=== PATIENT | female | born 1975 | race Caucasian/White ===

== ENCOUNTER 2018-06-06 09:37 | Emergency (ER) | payer MEDICAID, OTHER ==
[~2018-06-06] VITALS: Ht 160 cm; Wt 68.2 kg
[~2018-06-06 09:37] MED LIST: HYDR-3686 PO; SERT50TA PO
[2018-06-06 10:44] LABS: BASOPHILS # (AUTO) 0.1 X10'3 (0-0.2); BASOPHILS % (AUTO) 1.3 % (0-1); EOSINOPHILS # (AUTO) 0.3 X10'3 (0-0.9); EOSINOPHILS % (AUTO) 4.3 % (0-6); HEMATOCRIT 41.3 % (35.0-45.0); HEMOGLOBIN 13.8 g/dl (12.0-16.0); MEAN CORPUSCULAR HGB CONC 33.4 g/dL (33.0-36.5); MEAN CORPUSCULAR VOLUME 89.8 FL (78-98); MEAN PLATELET VOLUME 8.2 FL (7.4-10.4); MONOCYTES # (AUTO) 0.4 X10'3 (0-0.9); MONOCYTES % (AUTO) 5.4 % (2-12); NEUTROPHILS # (AUTO) 4.6 X10'3 (1.8-7.7); PLATELET COUNT 215 X10'3 (140-440); RED CELL DISTRIBUTION WIDTH 13.1 % (11.5-14.5); WHITE BLOOD COUNT 7.5 X10'3 (4.5-11.0)
[2018-06-06 10:59] LABS: ALANINE AMINOTRANSFERASE 19 U/L (12-78); ALBUMIN 3.8 G/DL (3.4-5.0); ALBUMIN/GLOBULIN RATIO 1.3 (1.1-1.5); ANION GAP 8 (8-16); ASPARTATE AMINO TRANSFERASE 14 U/L (10-37); BILIRUBIN,TOTAL 0.2 MG/DL (0.1-1.0); BLOOD UREA NITROGEN 10 MG/DL (7-18); BUN/CREATININE RATIO 13.5 (6.6-38.0); CALCIUM 9.1 MG/DL (8.5-10.1); CHLORIDE 104 MMOL/L (99-107); CREATININE 0.74 MG/DL (0.40-0.90); GLUCOSE 93 MG/DL (70-104); POTASSIUM 3.6 MMOL/L (3.5-5.1); SODIUM 139 MMOL/L (135-145); TOTAL CARBON DIOXIDE 27.5 MMOL/L (24-32); TOTAL PROTEIN 6.7 G/DL (6.4-8.2); eGFR 86 ML/MIN
[2018-06-06 11:00] LABS: ALKALINE PHOSPHATASE 82 IU/L (46-116)
[2018-06-06 11:06] LABS: ETHANOL < 0.010 GM/DL (0.0-0.010)
[2018-06-06] MEDS ORDERED: OLANZapine 5mg rapidly disint. tablet PO ONE (12:15)
[2018-06-06] MEDS ORDERED: LORazepam 1 MG tablet PO ONE (12:15)
--- NOTE | 2018-06-06 12:20 | NUR ---
pt refusing po meds at this time. pt is calm and is trying to sleep
[2018-06-06 15:40] LABS: URINE HCG NEGATIVE (NEG)
[2018-06-06 15:41] LABS: CLARITY,URINE SLIGHTLY CLOUDY (Clear); COLOR,URINE STRAW (Yellow); GLUCOSE, URINE NEGATIVE (Neg); KETONES,URINE NEGATIVE (Neg); LEUKOCYTE ESTERASE ,URINE SMALL (Neg); NITRITES, URINE NEGATIVE (Neg); OCCULT BLOOD,URINE NEGATIVE (Neg); PH,URINE 6.5 (4.8-8.0); PROTEIN,URINE NEGATIVE (Neg); UA COLLECTION TYPE CLN CATCH MIDSTREAM; UROBILINOGEN,URINE 0.2 E.U/dL (0.2-1.0)
[2018-06-06 15:54] LABS: URINE AMPHETAMINE SCREEN POSITIVE (Neg); URINE BARBITUATE SCREEN NEGATIVE (Neg); URINE BENZODIAZEPINES SCREEN NEGATIVE (Neg); URINE CANNABINOID SCREEN NEGATIVE (Neg); URINE COCAINE SCREEN NEGATIVE (Neg); URINE METHADONE SCREEN NEGATIVE (Neg); URINE OPIATE SCREEN NEGATIVE (Neg); URINE PHENCYCLIDINE SCREEN NEGATIVE (Neg)
[2018-06-06 15:59] LABS: BACTERIA,URINE 1+ /HPF (Neg); MUCUS STRANDS FEW /LPF (Neg); RBC,URINE 0-2 /HPF (0-2); SQUAMOUS EPITHELIAL CELL,UR MODERATE /LPF (FEW)
--- NOTE | 2018-06-06 18:14 | NUR ---
Received report from ROEL Anaya. Patient is awake and alert on room air, in no apparent distress.
[2018-06-06] MEDS ORDERED: olanzapine 10mg tablet PO SCH (21:00)
[2018-06-07 07:57] VITALS: BP 97/59
[2018-06-07] MEDS ORDERED: OLANZAPINE 5 MG TABLET PO SCH (08:00)
[2018-06-07 12:14] LABS: COLOR,URINE YELLOW (Yellow); GLUCOSE, URINE NEGATIVE (Neg); KETONES,URINE NEGATIVE (Neg); LEUKOCYTE ESTERASE ,URINE SMALL (Neg); NITRITES, URINE NEGATIVE (Neg); PROTEIN,URINE TRACE mg/dl (Neg); UROBILINOGEN,URINE 0.2 E.U/dL (0.2-1.0)
[2018-06-07 12:26] LABS: CLARITY,URINE CLEAR (Clear); OCCULT BLOOD,URINE NEGATIVE (Neg)
[2018-06-07 12:27] LABS: UA COLLECTION TYPE CLN CATCH MIDSTREAM
[2018-06-07 12:28] LABS: RBC,URINE 0-2 /HPF (0-2)
[2018-06-07 12:29] LABS: BACTERIA,URINE NONE SEEN /HPF (Neg); CAL OXALATE CRYSTALS 1+ /HPF (NEGATIVE); SQUAMOUS EPITHELIAL CELL,UR FEW /LPF (FEW)
--- NOTE | 2018-06-07 12:36 | NUR ---
REPEAT UA RESULTS BACK, DR PERSON TO ADDRESS
--- NOTE | 2018-06-07 12:40 | NUR ---
Spoke with Dr. Crenshaw regarding urine sample results being positive WBC 10-20, Dr. Crenshaw stated to place verbal order for macrobid 100mg PO BID to start now. Will place order, Pippa SEVILLA aware of new order.
[2018-06-07] MEDS ORDERED: nitrofuran/nitrofuran macrocrysal 100 MG capsule PO SCH ×2 (12:49→20:00)
[2018-06-07] MEDS ORDERED: NITR100C6 PO (13:04)
--- NOTE | 2018-06-07 14:45 | NUR ---
mental health to come get pt at approx 1600. pt has macrobid prescription to take with her upon discharge, had first dose here
--- NOTE | 2018-06-07 16:14 | NUR ---
garbage collector driver is here from [facility] to take pt there, pt getting dressed
== END 2018-06-07 16:26 ==
LOC: ER 09:38
DX: S00.83XA Contusion of other part of head, initial encounter (principal); F29 Unspecified psychosis not due to a substance or known physiological condition; F31.9 Bipolar disorder, unspecified; F20.9 Schizophrenia, unspecified; J45.909 Unspecified asthma, uncomplicated; Z88.2 Allergy status to sulfonamides; Z79.899 Other long term (current) drug therapy; X58.XXXA Exposure to other specified factors, initial encounter; Y93.89 Activity, other specified; Y92.89 Other specified places as the place of occurrence of the external cause; Y99.8 Other external cause status
CPT/HCPCS: 36415; 80053; 80305; 80320; 81001; 81025; 84443; 85025; 87088; 99285; J3490

== ENCOUNTER 2018-06-17 04:27 | Emergency (ER) | payer MEDICAID, OTHER ==
[~2018-06-17] VITALS: Ht 162.6 cm; Wt 68.2 kg
[~2018-06-17 04:27] MED LIST changes: +NITR100C6 PO
[2018-06-17 04:31] VITALS: BP 146/71
== END 2018-06-17 06:33 | disposition left against medical advice (07) ==
LOC: ER 04:28
DX: R51 Headache (principal); Z53.21 Procedure and treatment not carried out due to patient leaving prior to being seen by health care provider

== ENCOUNTER 2018-07-26 12:11 | Emergency (ER) | payer MEDICAID, OTHER ==
--- NOTE | 2018-07-26 13:27 | NUR ---
PT. CAME IN TODAY AND STATED THE ONLY THING SHE NEEDED WAS A NOTE WAS A NOTE FOR [facility] STATING THAT SHE WAS A PT. HERE LAST NIGHT. I LOOKED UP PT'S VISITS AND SHE WAS NOT A PT OF OURS LAST. PT. THEN STATED SHE NEED TO GET BACK TO [place] AND FIND HER . I ASKED THE PT. AGAIN IF SHE HAD A MEDICAL COMPLAINT. SHE SAID NO " I JUST NEED A RIDE TO [facility] [place]" I EXPLAINED TO HER THAT THE EMERGENCY ROOM WAS FOR MEDICAL PROBLEMS NOT SOCIAL ONES. I EXPLAINED TO HER THAT SHE DID NOT WANT TO SEE THE DOCTOR TODAY AND SHE WAS NOT A PT. OF OURS LAST NIGHT, SO I COULD NOT COPY OR GIVE HER ANYTHING FOR [facility]. PT. AMBULATED OUT OF TRIAGE. PT WAS SEEN WALKING ACROSS THE STREET A SHOT TIME LATE.
== END 2018-07-26 13:45 | disposition left against medical advice (07) ==
LOC: ER 12:12
DX: Z00.8 Encounter for other general examination (principal); Z53.21 Procedure and treatment not carried out due to patient leaving prior to being seen by health care provider

== ENCOUNTER 2019-04-17 11:55 | Emergency (ER) | payer OTHER ==
[~2019-04-17] VITALS: Ht 160 cm; Wt 63.6 kg
--- NOTE | 2019-04-17 12:33 | NUR ---
pt brought straight back to ER overflow bed 27. Oriented to unit and unit policy. changed into scrubs. items inventoried. a stack of cards found on person ranging from another persons ID card, a SS card, an unknown health insurance card, a card with an acct number, [employer] cards, etc. cards inventoried by security and security will notify [employer] of cards that are not directly linked to pt. when initally asked about the cards pt stated "i'm not a spider". did confirm a couple of the cards and whom they belong to. pts at bedside. pt stating she is ready to be "checked out" and leave the hospital. pt made aware she's on a 5150. pt stating her hold is a mistake. pt and aware they need to talk to [facility] for further POC.
--- NOTE | 2019-04-17 12:50 | NUR ---
pt BIB EMS from [facility] to be placed on an SI/SO hold. report states she walked into the [facility] office screaming and cussing and appearing to be very confused. pt states she was only screaming because she had a cotton ball in her mouth from a recent dental procedure and her throat was sore. pt does appear to be very confused. asking when she can be discharged.
[2019-04-17 13:20] LABS: BASOPHILS # (AUTO) 0.1 X10'3 (0-0.2); BASOPHILS % (AUTO) 1.2 % (0-1); EOSINOPHILS # (AUTO) 0.7 X10'3 (0-0.9); EOSINOPHILS % (AUTO) 6.9 % (0-6); HEMATOCRIT 43.3 % (35.0-45.0); HEMOGLOBIN 14.5 g/dl (12.0-16.0); LYMPHOCYTES # (AUTO) 2.2 X10'3 (1.1-4.8); LYMPHOCYTES % (AUTO) 21.7 % (21-51); MEAN CORPUSCULAR HEMOGLOBIN 29.4 PG (27.0-31.0); MEAN CORPUSCULAR HGB CONC 33.5 g/dL (33.0-36.5); MEAN CORPUSCULAR VOLUME 87.7 FL (78-98); MEAN PLATELET VOLUME 8.5 FL (7.4-10.4); MONOCYTES # (AUTO) 0.5 X10'3 (0-0.9); MONOCYTES % (AUTO) 5.2 % (2-12); NEUTROPHILS # (AUTO) 6.5 X10'3 (1.8-7.7); PLATELET COUNT 283 X10'3 (140-440); RED BLOOD COUNT 4.93 X10'6 (4.20-5.60); RED CELL DISTRIBUTION WIDTH 13.1 % (11.5-14.5); WHITE BLOOD COUNT 10.1 X10'3 (4.5-11.0)
[2019-04-17 13:36] LABS: ALANINE AMINOTRANSFERASE 20 U/L (12-78); ALBUMIN/GLOBULIN RATIO 1.3 (1.1-1.5); ALKALINE PHOSPHATASE 89 IU/L (46-116); ANION GAP 9 (8-16); ASPARTATE AMINO TRANSFERASE 18 U/L (10-37); BILIRUBIN,TOTAL 0.2 MG/DL (0.1-1.0); BLOOD UREA NITROGEN 15 MG/DL (7-18); BUN/CREATININE RATIO 18.8 (6.6-38.0); CHLORIDE 106 MMOL/L (99-107); ETHANOL < 0.010 GM/DL (0.0-0.010); GLUCOSE 89 MG/DL (70-104); SODIUM 142 MMOL/L (135-145); TOTAL CARBON DIOXIDE 26.6 MMOL/L (24-32); TOTAL PROTEIN 7.2 G/DL (6.4-8.2); eGFR 79 ML/MIN
--- NOTE | 2019-04-17 14:22 | NUR ---
Pt aware she is in the hospital. She asked where her was & when told became agitated. Pt then answered basic questions inappropriately followed immediatedly by her request for food. When she was told a tray was on order, she comprehended. Pt presents as alfredo AEB her ability to comprehend when it's something she is seeking information about, but is unable/willing to provide staff information when asked. Pt went to bathroom where she began screaming and yelling when none present.
--- NOTE | 2019-04-17 14:34 | NUR ---
Discussed pt's increased agitation with EDMD; new orders for Ativan 2mg, Haldol 5mg and Benadryl 50mg IM received. Primary RN Kasandra notified.
[2019-04-17] MEDS ORDERED: diphenhydrAMINE 50 mg/ml inj IM ONE (14:40)
[2019-04-17] MEDS ORDERED: LORazepam 2 mg/ml vial IM ONE (14:40)
[2019-04-17] MEDS ORDERED: haloperidol lactate 5mg/ml inj IM ONE (14:40)
--- NOTE | 2019-04-17 16:08 | NUR ---
pt sleeping in bed, rr even and unlabored s/p Benadryl, Haldol, Ativan administration. came up to nurses station and asking many questions about pts care, seemingly not comprehending what this RN has been telling him about pts care, speaking with slurred/mumbled/garbled speech. nursing staff unable to fully comprehend conversations with pts d/t his speech. pts stating pt has not been on her correct meds since he and pt got in 2009 and pt was no longer using her social security. states since their marriage she has been rejected care by [facility] and other facilities due to her social security income being cut off when they wed. they have supposedly not been able to straighten out her medical coverage since 2009 causing the pt to be ill treated for her pysch issues since then. supposedly since 2009 she has been off/on her meds and "no one will really help her".
--- NOTE | 2019-04-17 17:26 | NUR ---
sleeping in bed, rr even and unlabored.
--- NOTE | 2019-04-17 17:40 | NUR ---
pts : Moo Barragan ([phone]) pts cell phone: [phone]
--- NOTE | 2019-04-17 18:42 | NUR ---
Received report and assumed pt care.
--- NOTE | 2019-04-17 19:47 | NUR ---
Pt resting comfortably, no s/s of distress, respirations normal.
--- NOTE | 2019-04-17 21:00 | NUR ---
Pt resting quietly, respirations normal, no s/s of distress.
--- NOTE | 2019-04-17 22:10 | NUR ---
Pt resting quietly, respirations normal, no s/s of distress.
--- NOTE | 2019-04-18 | NUR ---
Pt resting quietly, respirations normal, no s/s of distress.
--- NOTE | 2019-04-18 01:00 | NUR ---
Pt resting quietly, respirations normal, no s/s of distress.
--- NOTE | 2019-04-18 02:00 | NUR ---
Pt resting quietly, respirations normal, no s/s of distress.
--- NOTE | 2019-04-18 02:58 | NUR ---
Pt resting quietly, respirations normal, no s/s of distress.
--- NOTE | 2019-04-18 04:00 | NUR ---
Pt resting quietly, respirations normal, no s/s of distress.
--- NOTE | 2019-04-18 05:00 | NUR ---
Pt resting quietly, respirations normal, no s/s of distress.
--- NOTE | 2019-04-18 05:44 | NUR ---
Pt resting quietly, respirations normal, no s/s of distress.
--- NOTE | 2019-04-18 06:30 | NUR ---
resting quietly in bed, rr even and unlabored.
--- NOTE | 2019-04-18 07:54 | NUR ---
resting quietly in bed.
--- NOTE | 2019-04-18 09:12 | NUR ---
resting quietly in bed.
--- NOTE | 2019-04-18 10:11 | NUR ---
pt finally awake, sitting up in bed, eating breakfast. appears to be calm and quiet. pt aware we need a urine sample from her.
--- NOTE | 2019-04-18 10:14 | NUR ---
RN spoke with [facility] on the phone and they stated that [facility] is willing to accept pt. They just have to find out if it would be covered under pts insurance. currently pending pts urine sample/tox screen to be able to fax packet to [facility].
--- NOTE | 2019-04-18 10:30 | NUR ---
pt ate breakfast then layed back down to sleep. pt encouraged to wake up and use the restroom so we can get a urine sample. pt remains laying in bed with eyes closed.
[2019-04-18 10:55] LABS: CLARITY,URINE CLOUDY (Clear); COLOR,URINE YELLOW (Yellow); GLUCOSE, URINE NEGATIVE (Neg); KETONES,URINE 40 mg/dl (Neg); LEUKOCYTE ESTERASE ,URINE SMALL (Neg); NITRITES, URINE NEGATIVE (Neg); OCCULT BLOOD,URINE SMALL (Neg); PROTEIN,URINE 30 mg/dl (Neg); UROBILINOGEN,URINE 0.2 E.U/dL (0.2-1.0)
[2019-04-18 10:56] LABS: UA COLLECTION TYPE CLN CATCH MIDSTREAM
[2019-04-18 11:03] LABS: URINE AMPHETAMINE SCREEN POSITIVE (Neg); URINE BARBITUATE SCREEN NEGATIVE (Neg); URINE BENZODIAZEPINES SCREEN NEGATIVE (Neg); URINE CANNABINOID SCREEN NEGATIVE (Neg); URINE COCAINE SCREEN NEGATIVE (Neg); URINE HCG NEGATIVE (NEG); URINE METHADONE SCREEN NEGATIVE (Neg); URINE OPIATE SCREEN NEGATIVE (Neg); URINE PHENCYCLIDINE SCREEN NEGATIVE (Neg)
[2019-04-18 11:05] LABS: BACTERIA,URINE 2+ /HPF (Neg); MUCUS STRANDS MODERATE /LPF (Neg); SQUAMOUS EPITHELIAL CELL,UR MODERATE /LPF (FEW); WBC CLUMPS,URINE FEW /HPF (NEGATIVE)
[2019-04-18 11:06] LABS: WBC,URINE TNTC /HPF (0-4)
--- NOTE | 2019-04-18 11:30 | NUR ---
pt asleep in bed. came to visit her, saw she was asleep and turned around and left; said he didn't want to wake her.
--- NOTE | 2019-04-18 11:59 | NUR ---
Breaking primary RN, pt is laying on her left side, eyes closed, regular, spontaineous breathing observed, appears to be asleep
--- NOTE | 2019-04-18 12:47 | NUR ---
pt up walking around bed asking when she'll be released. RN stated pt needs to talk to [facility] before any discharge can be arranged. pt states "it's not up to [facility]". RN reminded pt she is on a mental health hold.
--- NOTE | 2019-04-18 13:05 | NUR ---
at bedside. No distress observed. Continue to monitor.
--- NOTE | 2019-04-18 14:02 | NUR ---
pt resting quietly in bed.
--- NOTE | 2019-04-18 14:10 | NUR ---
Gutierrez Rosado called to get nurse to nurse for pt.
--- NOTE | 2019-04-18 15:37 | NUR ---
PACKET FAXED TO [facility]
--- NOTE | 2019-04-18 15:55 | NUR ---
Patient ambulatory to BR, steady gait.
[2019-04-18 16:35] LABS: BETA HCG,QUANTITATIVE < 1.0 mIU/ml
--- NOTE | 2019-04-18 17:38 | NUR ---
Patient up and readjusting. No distress observed. Continue to monitor.
--- NOTE | 2019-04-18 18:30 | NUR ---
Assumed care. Pt appears to be sleeping on right side, respirations even and unlabored.
[2019-04-18 20:54] VITALS: BP 90/56
== END 2019-04-18 21:05 ==
LOC: ER 11:55
DX: F29 Unspecified psychosis not due to a substance or known physiological condition (principal); F79 Unspecified intellectual disabilities; J45.909 Unspecified asthma, uncomplicated; F31.9 Bipolar disorder, unspecified; F20.9 Schizophrenia, unspecified; Z88.2 Allergy status to sulfonamides; Z79.899 Other long term (current) drug therapy
CPT/HCPCS: 36415; 80053; 80305; 80320; 81001; 81025; 84443; 84702; 85025; 96372; 99285; J1200; J1630; J2060

== ENCOUNTER 2019-05-14 03:33 | Emergency (ER) | payer OTHER ==
[~2019-05-14] VITALS: Ht 160 cm; Wt 63.0 kg
[2019-05-14 03:45] VITALS: BP 123/86
[2019-05-14] MEDS ORDERED: NITR100C6 PO (04:27)
[2019-05-14] MEDS ORDERED: ALBU8.5H8 INH (04:27)
[2019-05-14 04:35] LABS: CLARITY,URINE CLEAR (Clear); COLOR,URINE YELLOW (Yellow); GLUCOSE, URINE NEGATIVE (Neg); KETONES,URINE NEGATIVE (Neg); LEUKOCYTE ESTERASE ,URINE SMALL (Neg); NITRITES, URINE NEGATIVE (Neg); OCCULT BLOOD,URINE TRACE-INTACT (Neg); PROTEIN,URINE NEGATIVE (Neg); UROBILINOGEN,URINE 0.2 E.U/dL (0.2-1.0)
[2019-05-14 04:36] LABS: URINE HCG NEGATIVE (NEG)
[2019-05-14 04:43] LABS: UA COLLECTION TYPE CLN CATCH MIDSTREAM
[2019-05-14 04:51] LABS: BACTERIA,URINE NONE SEEN /HPF (Neg); MUCUS STRANDS NONE SEEN /LPF (Neg); RBC,URINE 0-2 /HPF (0-2); SQUAMOUS EPITHELIAL CELL,UR FEW /LPF (FEW)
== END 2019-05-14 05:01 | disposition home or self-care (01) ==
LOC: ER 03:33
DX: N39.0 Urinary tract infection, site not specified (principal); Z76.0 Encounter for issue of repeat prescription; J45.909 Unspecified asthma, uncomplicated; F31.9 Bipolar disorder, unspecified; Z88.2 Allergy status to sulfonamides; Z79.899 Other long term (current) drug therapy
CPT/HCPCS: 81001; 81025; 87088; 99283

== ENCOUNTER 2021-09-20 14:09 | Emergency (ER) | payer MEDICAID ==
[~2021-09-20] VITALS: Ht 152.4 cm; Wt 54.5 kg
[~2021-09-20 14:09] MED LIST changes: +ALBU8.5H17 INH
[2021-09-20 14:14] VITALS: BP 123/65
[2021-09-20] MEDS ORDERED: silver sulfadiazine cream 400gm jar TP ONE (16:25)
[2021-09-20] MEDS ORDERED: silver sulfadiazine cream 50gm TP ONE (16:35)
== END 2021-09-20 18:15 | disposition home or self-care (01) ==
LOC: ER 14:09
DX: T20.16XA Burn of first degree of forehead and cheek, initial encounter (principal); T20.12XA Burn of first degree of lip(s), initial encounter; T26.02XA Burn of left eyelid and periocular area, initial encounter; T26.01XA Burn of right eyelid and periocular area, initial encounter; T28.0XXA Burn of mouth and pharynx, initial encounter; F31.9 Bipolar disorder, unspecified; F20.9 Schizophrenia, unspecified; Z88.2 Allergy status to sulfonamides; Z79.899 Other long term (current) drug therapy
CPT/HCPCS: 16000; 99282; A6449